=== PATIENT | female | born 1930 | race Two or more races ===

== ENCOUNTER 2018-03-09 11:00 | Outpatient (CLI) | payer OTHER | END 2018-03-09 11:18 | disposition home or self-care (01) | LOC: MAMO-SONO 11:00 | DX: R92.8 Other abnormal and inconclusive findings on diagnostic imaging of breast (principal); N64.4 Mastodynia ==

== ENCOUNTER 2018-03-10 08:00 | Outpatient (CLI) | payer OTHER | END 2018-03-10 12:00 | disposition home or self-care (01) | LOC: SONOGRAMA 08:00 | DX: R92.8 Other abnormal and inconclusive findings on diagnostic imaging of breast (principal) ==